=== PATIENT | female | born 1930 | race Caucasian/White ===

== ENCOUNTER → 2016-09-20 | Outpatient (CLI) | payer MEDICARE ==
[~2016-09-20] MED LIST: AMLO10TA2 PO; ASPI-496 PO; CHOL200040 PO; CRAN200C PO; L GA1CAP PO; LEVO50TA5 PO; LISI40TA PO; MULT-717 PO; TRUBIOTICS
== END | disposition home or self-care (01) ==
LOC: CFH 10:34
PROVIDERS: ATTEND Internal Medicine
DX: Z13.820 Encounter for screening for osteoporosis (principal); N95.9 Unspecified menopausal and perimenopausal disorder; M81.8 Other osteoporosis without current pathological fracture
CPT/HCPCS: 77080